=== PATIENT | male | born 1980 | race Caucasian/White ===

== ENCOUNTER 2020-08-02 22:19 | Emergency (ER) | payer OTHER ==
[~2020-08-02] VITALS: Ht 172.7 cm; Wt 95.3 kg
[~2020-08-02 22:19] MED LIST: ACCUNEB SO1.25 MG/1; ALPRAZOLAM PO; ANAPROX DS550 MG PO; BACTRIM DS TAB1 EACH PO; CLONAZEPAM 1 MG1 M1; LORTAB 5 MG/5001 TA1 PO; NAPROSYN375 MG PO; NAPROSYN500 MG PO; NOHOMEMEDICATIONS; NORCO 5-325 TA1 EACH PO; NORVASC 5 MG TAB5 MG; PERCOCET 5-3251 EACH PO; PREDNISONE 10 M10 M1; VALIUM5 MG; VICODIN 5-5001 EACH; ZOFRAN ODT4 MG PO
[2020-08-02] MEDS ORDERED: ADDERALL 20 MG20 MG PO (22:30)
[2020-08-02] MEDS ORDERED: XANAX1 MG PO (22:31)
[2020-08-02 23:54] LABS: ABSOLUTE LYMPHOCYTES 1.4 thou/uL (0.8-5.3); ABSOLUTE MONOCYTES 1.2 thou/uL (0.0-1.2); ABSOLUTE NEUTROPHILS 10.5 thou/uL (1.6-8.1); BASOPHILS 0.3 %; EOSINOPHILS 0.2 %; HEMATOCRIT 42.4 % (42.0-52.0); HEMOGLOBIN 14.4 gm/dL (14.0-18.0); LYMPHOCYTES 10.6 %; MCH 28.7 pg (26.0-34.0); MCHC 33.9 g/dL (28.0-37.0); MCV 84.6 fL (80.0-100.0); MONOCYTES 8.9 %; MPV 7.3 fl. (7.2-11.1); NUCLEATED RBCS 0 /100WBC; PLATELET COUNT* 362 thou/uL (150-400); RBC 5.01 mil/uL (4.50-6.00); RDW-CV 13.6 % (10.5-14.5); WBC 13.2 thou/uL (4.0-11.0)
[2020-08-02 23:57] LABS: CALCIUM 9.1 mg/dL (8.5-10.1); CREATININE 1.4 mg/dL (0.6-1.3); POTASSIUM 3.4 mmol/L (3.5-5.1)
[2020-08-03 00:01] LABS: ALBUMIN 3.6 g/dL (3.4-5.0); TOTAL BILIRUBIN 0.2 mg/dL (<0.1-1.0); TOTAL PROTEIN 7.5 g/dL (6.4-8.2)
[2020-08-03 02:13] LABS: URINE BILIRUBIN NEGATIVE (Negative); URINE BLOOD NEGATIVE (Negative); URINE CLARITY CLEAR; URINE COLOR YELLOW; URINE GLUCOSE-RANDOM NEGATIVE (Negative); URINE KETONES NEGATIVE (Negative); URINE LEUKOCYTES-REFLEX NEGATIVE (Negative); URINE NITRITE-REFLEX NEGATIVE (Negative); URINE PROTEIN NEGATIVE (Negative); URINE UROBILINOGEN 0.2 E.U./dl (0.2-1.0)
[2020-08-03] MEDS ORDERED: TRAMADOL 50 MG50 MG PO (02:51)
[2020-08-03] MEDS ORDERED: FLEXERIL PO (02:51)
[2020-08-03 03:13] VITALS: BP 138/80
== END 2020-08-03 03:17 | disposition home or self-care (01) ==
LOC: M.ERS 22:19
PROVIDERS: Emergency Medicine
DX: M62.830 Muscle spasm of back (principal); F17.210 Nicotine dependence, cigarettes, uncomplicated